=== PATIENT | female | born 1955 | race African-American/Black ===

== ENCOUNTER 2024-02-07 06:40 | Emergency (ER) | payer OTHER ==
[2024-02-07 06:50] VITALS: BP 133/75; PULSE 88; RESP 22; TEMP 98.2; BMI 28.8
[2024-02-07] MEDS ORDERED: guaiFENesin 200 MG/10 ML 10 ML UNIT-DOSE CUPS PO ONE (08:04)
== END 2024-02-07 09:48 | disposition home or self-care (01) ==
LOC: JER 06:40
DX: R05.1 Acute cough (principal); R09.81 Nasal congestion; R07.89 Other chest pain; R09.82 Postnasal drip; R51.9 Headache, unspecified; J06.9 Acute upper respiratory infection, unspecified; Z20.822 Contact with and (suspected) exposure to COVID-19
CPT/HCPCS: 0241U-QW; 71046-TC-FY; 99283-25

== ENCOUNTER 2024-03-16 11:42 | Emergency (ER) | payer OTHER ==
[2024-03-16 11:57] VITALS: RESP 16; BMI 28.7
[2024-03-16] MEDS ORDERED: ACETAMINOPHEN 325 MG TABLET (FP) ONE (14:33)
[2024-03-16] MEDS: ACETAMINOPHEN 325 MG TABLET (FP) PO ONE (14:42)
[2024-03-16 17:14] VITALS: BP 136/71; PULSE 69; TEMP 97.9
== END 2024-03-16 17:35 | disposition home or self-care (01) ==
LOC: JER 11:42
DX: M79.675 Pain in left toe(s) (principal); M25.552 Pain in left hip; R51.9 Headache, unspecified; M79.604 Pain in right leg; W11.XXXA Fall on and from ladder, initial encounter
CPT/HCPCS: 70450-TC; 72125-TC; 72170-TC-FY; 73502-TC-LT-FY; 73590-TC-RT-FY; 73630-TC-LT; 99284-25